=== PATIENT | female | born 1970 | race Caucasian/White ===

== ENCOUNTER 2017-04-12 03:03 | Emergency (ER) | payer MEDICAID ==
[~2017-04-12] VITALS: Ht 162.6 cm; Wt 95.0 kg
[2017-04-12] MEDS ORDERED: GABA600T2 PO (03:10)
[2017-04-12] MEDS ORDERED: ketorolac trometh inj. 60 MG/2 ML VIAL IM ONE (03:10)
[2017-04-12 03:24] VITALS: BP 146/86
== END 2017-04-12 03:27 | disposition home or self-care (01) ==
LOC: ER 03:06
DX: G89.29 Other chronic pain (principal); M54.5 Low back pain; J01.10 Acute frontal sinusitis, unspecified; Z88.0 Allergy status to penicillin
CPT/HCPCS: 96372; 99283; J1885

== ENCOUNTER 2018-11-02 05:26 | Day surgery (SDC) | payer MEDICAID ==
[2018-11-01 12:17] LABS: CLARITY,URINE CLEAR (Clear); COLOR,URINE YELLOW (Yellow); GLUCOSE, URINE NEGATIVE (Neg); KETONES,URINE TRACE mg/dl (Neg); LEUKOCYTE ESTERASE ,URINE NEGATIVE (Neg); NITRITES, URINE NEGATIVE (Neg); OCCULT BLOOD,URINE TRACE-LYSED (Neg); PH,URINE 5.5 (4.8-8.0); PROTEIN,URINE 30 mg/dl (Neg)
[2018-11-01 12:17] LABS: BASOPHILS # (AUTO) 0.1 X10'3 (0-0.2); EOSINOPHILS # (AUTO) 0.1 X10'3 (0-0.9); EOSINOPHILS % (AUTO) 1.3 % (0-6); LYMPHOCYTES # (AUTO) 3.2 X10'3 (1.1-4.8); LYMPHOCYTES % (AUTO) 37.7 % (21-51); MEAN CORPUSCULAR HGB CONC 33.9 g/dL (33.0-36.5); MEAN CORPUSCULAR VOLUME 88.4 FL (78-98); MEAN PLATELET VOLUME 7.3 FL (7.4-10.4); MONOCYTES # (AUTO) 0.5 X10'3 (0-0.9); NEUTROPHILS # (AUTO) 4.5 X10'3 (1.8-7.7); PRE OP HEMATOCRIT 42.7 % (35.0-45.0); PRE OP HEMOGLOBIN 14.5 g/dL (12.0-16.0); PRE OP PLATELET COUNT 592 X10'3 (140-440); RED BLOOD COUNT 4.82 X10'6 (4.20-5.60); RED CELL DISTRIBUTION WIDTH 13.5 % (11.5-14.5)
[2018-11-01 12:18] LABS: UA COLLECTION TYPE CLN CATCH MIDSTREAM
[2018-11-01 12:25] LABS: BACTERIA,URINE 3+ /HPF (Neg); SQUAMOUS EPITHELIAL CELL,UR MANY /LPF (FEW)
[2018-11-01 12:26] LABS: ALBUMIN 3.9 G/DL (3.4-5.0); ALBUMIN/GLOBULIN RATIO 0.9 (1.1-1.5); ALKALINE PHOSPHATASE 92 IU/L (46-116); BLOOD UREA NITROGEN 9 MG/DL (7-18); BUN/CREATININE RATIO 13.2 (6.6-38.0); CALCIUM 9.5 MG/DL (8.5-10.1); CHLORIDE 106 MMOL/L (99-107); CREATININE 0.68 MG/DL (0.40-0.90); PRE OP ALT 25 U/L (30-65); PRE OP ANION GAP 11 (8-16); PRE OP AST 10 U/L (10-37); PRE OP BILIRUB, TOTAL 0.4 MG/DL (0.0-1.0); PRE OP GLUCOSE 98 MG/DL (70-104); PRE OP POTASSIUM 4.3 MMOL/L (3.4-5.1); PRE OP SODIUM 141 MMOL/L (135-145); TOTAL PROTEIN 8.1 G/DL (6.4-8.2); eGFR > 90 ML/MIN
[2018-11-01 12:27] LABS: CAL OXALATE CRYSTALS 1+ /HPF (NEGATIVE); RBC,URINE 0-2 /HPF (0-2)
[2018-11-01 12:28] LABS: HYALINE CASTS 0-3 /LPF (NEGATIVE)
[2018-11-01 12:30] LABS: HCG SERUM QL NEGATIVE; PRE OP INR 0.9 INR; PRE OP PROTIME 9.6 SECONDS (9.0-12.0)
[~2018-11-02] VITALS: Ht 162.6 cm; Wt 86.2 kg
[2018-11-02] VITALS (8 sets, daily range): BP systolic 122–142; BP diastolic 71–88
[~2018-11-02 05:26] MED LIST: CYCL-394; DULO-31 PO; GABA600T13 PO; LAMO25TA62 PO; LIT300C PO; LITH300T3 PO; OMEP40CA13 PO; PRAM0.5T3 PO; ROSU5TAB PO
[2018-11-02] MEDS ORDERED: ringers solution, lacted 1,000 ML IV SCH ×2 (05:30→08:04)
[2018-11-02] MEDS ORDERED: ceFOXitin 2 GM ADDVANTGE BAG 50 ML IV ONE (05:30)
[2018-11-02] MEDS ORDERED: famotidine 20mg tablet PO ONE (05:30)
[2018-11-02] MEDS ORDERED: LIDOcaine 1% (10mg/ml) 2ml vial ONE (05:56)
[2018-11-02] MEDS ORDERED: ferric subsulfate solution/paste 1 APPLIC SOL.W.APPL TP ONE (06:49)
[2018-11-02] MEDS ORDERED: glycopyrrolate 0.2mg/ml inj ONE (07:17)
[2018-11-02] MEDS ORDERED: sevoflurane 250ml liquid IH ONE (07:17)
[2018-11-02] MEDS ORDERED: fentaNYL/PF 50MCG/1 ML 2ML syringe ONE ×2 (07:23→07:39)
[2018-11-02] MEDS ORDERED: midazolam 2 mg/2 ml injection ONE (07:24)
[2018-11-02] MEDS ORDERED: propofol inj 20 ML IV ONE ×2 (07:45→07:46)
[2018-11-02] MEDS ORDERED: succinylcholine 20mg/ml inj IV ONE (07:46)
[2018-11-02] MEDS ORDERED: LIDOcaine 2% (20mg/ml) 5ml vial ONE (07:46)
--- NOTE | 2018-11-02 08:00 | NUR ---
Received from OR via BED, accompanied by Anesthesiologist --TRIP- and report given by Anesthesiolgist. PATIENT A&OX4, DENIES PAIN, V/S WNL, NEUROVASCULAR CHECKS INTACT, 20G PIV LUE, SCD ON, PERIPAD WITH SCANT DRAINAGE.
[2018-11-02] MEDS ORDERED: proCHLORperazine 10 MG/2 ml inj IV PRN (08:05)
[2018-11-02] MEDS ORDERED: ondansetron/PF 4mg/2ml inj IV PRN (08:05)
[2018-11-02] MEDS ORDERED: meperidine/PF 25mg/ml syringe IV PRN ×3 (08:05)
[2018-11-02] MEDS ORDERED: morphine 4 MG/ML inj SYRINge IV PRN ×2 (08:05)
--- NOTE | 2018-11-02 09:00 | NUR ---
PATIENT A&OX4, DENIES PAIN, V/S WNL, NEUROVASCULAR CHECKS INTACT, 20G PIV LUE D/C, SCD OFF, PERIPAD WITH SCANT DRAINAGE. I HAVE REVIEWED D/C INSTRUCTIONS WITH PATIENT AND FAMILY AND THEY HAVE VERBALIZED UNDERSTANDING. PATIENT D/C HOME WITH ALL BELONGINGS AND FAMILY GAVE TRANSPORT HOME.
== END 2018-11-02 09:00 | disposition home or self-care (01) ==
LOC: PAS 05:26
PROVIDERS: ATTEND Obstetrics & Gynecology
DX: N88.8 Other specified noninflammatory disorders of cervix uteri (principal); J45.909 Unspecified asthma, uncomplicated; K21.9 Gastro-esophageal reflux disease without esophagitis; F31.9 Bipolar disorder, unspecified; Z79.899 Other long term (current) drug therapy; Z79.01 Long term (current) use of anticoagulants; Z98.51 Tubal ligation status; Z90.710 Acquired absence of both cervix and uterus; Z90.49 Acquired absence of other specified parts of digestive tract; Z88.0 Allergy status to penicillin; Z82.49 Family history of ischemic heart disease and other diseases of the circulatory system; Z83.3 Family history of diabetes mellitus
CPT/HCPCS: 36415; 57410; 80053; 81001; 82948; 84703; 85025; 85610; 85730; 93005; J0330; J0694; J2001; J2250; J2704; J3010; J7120; A4618; A7000; J3490

== ENCOUNTER 2023-03-17 22:36 | Emergency (ER) | payer BC, MEDICAID ==
[~2023-03-17] VITALS: Ht 162.6 cm; Wt 95.5 kg
[~2023-03-17 22:36] MED LIST changes: -OMEP40CA13 PO; +OMEP40CA21 PO
[2023-03-17 22:45] VITALS: BP 183/101; PULSE 94; RESP 18; TEMP 98.1; O2SAT 98
== END 2023-03-18 04:12 | disposition left against medical advice (07) ==
LOC: ER 22:36
DX: M54.2 Cervicalgia (principal); Z53.21 Procedure and treatment not carried out due to patient leaving prior to being seen by health care provider
CPT/HCPCS: 99281